=== PATIENT | male | born 1955 | race Caucasian/White ===

== ENCOUNTER → 2020-06-19 | Day surgery (SDC) | payer OTHER ==
[~2020-06-19] MED LIST: ASPIRIN CHEWABL81 MG PO; LIPITOR20 MG PO; LISINOPRIL-HCT1 EACH PO
--- NOTE | 2020-06-19 07:31 | NUR ---
PATIENT REPORTED TO ADMITTING NURSE THAT HE HAD HAD A CARDIAC STRESS TEST 06/15/20 AND DID NOT PASS THE TEST. WAS TOLD THAT HE NEEDED TO DO MORE TESTING. DR. BRADFORD AND DR. CORDOBA WERE NOTIFIED AND CASE IS TO BE CANCELLED.
== END | disposition home or self-care (01) ==
LOC: FAS 06:45
DX: Z12.11 Encounter for screening for malignant neoplasm of colon (principal); M19.90 Unspecified osteoarthritis, unspecified site; F17.210 Nicotine dependence, cigarettes, uncomplicated; E78.5 Hyperlipidemia, unspecified; I10 Essential (primary) hypertension; Z53.9 Procedure and treatment not carried out, unspecified reason; Z86.010 Personal history of colon polyps; Z80.0 Family history of malignant neoplasm of digestive organs; Z79.82 Long term (current) use of aspirin; Z79.899 Other long term (current) drug therapy; Z88.2 Allergy status to sulfonamides